=== PATIENT | male | born 1985 | race Caucasian/White ===

== ENCOUNTER 2022-06-02 14:41 | Emergency (ER) | payer OTHER ==
[2022-06-02 14:46] VITALS: BP 133/87; PULSE 75; RESP 18; TEMP 98.3
--- NOTE | 2022-06-02 15:24 | XR ---
EXAMINATION TYPE: XR forearm RT DATE OF EXAM: 06/02/2022 COMPARISON: NONE HISTORY: 37-year-old male right forearm crush injury, pain TECHNIQUE: 2 views FINDINGS: Some dressing is present along the distal aspect of the forearm. Some radial sided soft tissue injury is noted. No retained radiopaque foreign body is seen. No acute fracture, subluxation, or dislocatio n. Wrist and elbow articulations are grossly intact. No elbow joint effusion. IMPRESSION: Dressing over the distal forearm. Some radial sided soft tissue injury. No underlying acute osseous a bnormality seen.
[2022-06-02] MEDS ORDERED: DIPH,PERTUS(ACELL)TETVAC-LF 0.5 ML VIAL IM ONE (15:41)
[2022-06-02] MEDS ORDERED: LIDOCAINE 1% INJ 10MG/ML (5 ML VIAL-PF) SQ ONE (15:41)
--- NOTE | 2022-06-02 16:56 | ED ---
Wound/Laceration HPI - General Chief Complaint: Wound/Laceration Stated Complaint: [facility] - Rt arm lac Time Seen by Provider: 06/02/22 15:33 Source: patient Mode of arrival: EMS Limitations: no limitations - History of Present Illness Initial Comments: Patient is a 37-year-old male who presents for evaluation of laceration. Patient does arm caught in a press at work. Patient states it did not completely push down on his arm. Has laceration over right forearm. Patient reports minimal pain. Last tetanus unknown. - Related Data Previous Rx's Medication Instructions Recorded Cephalexin [Keflex] 500 mg PO Q6HR 5 Days #20 cap 06/02/22 Allergies Allergy/AdvReac Type Severity Reaction Status Date / Time No Known Allergies Allergy Verified 06/02/22 14:46 Review of Systems ROS Statement: Those systems with pertinent positive or pertinent negative responses have been documented in the HPI. ROS Other: All systems not noted in ROS Statement are negative. Past Medical History Past Medical History: No Reported History History of Any Multi-Drug Resistant Organisms: None Reported Past Surgical History: No Surgical Hx Reported Past Psychological History: No Psychological Hx Reported Smoking Status: Current every day smoker Past Alcohol Use History: None Reported Past Drug Use History: None Reported General Exam Limitations: no limitations General appearance: alert, in no apparent distress Head exam: Present: atraumatic, normocephalic, normal inspection Eye exam: Present: normal appearance, PERRL, EOMI. Absent: scleral icterus, conjunctival injection, periorbital swelling Respiratory exam: Present: normal lung sounds bilaterally. Absent: respiratory distress, wheezes, rales, rhonchi, stridor Cardiovascular Exam: Present: regular rate, normal rhythm, normal heart sounds. Absent: systolic murmur, diastolic murmur, rubs, gallop, clicks Extremities exam: Present: other (5 cm laceration over the right posterior forearm. Neurovascularly intact. Full range of motion of the right elbow, arm, hand, and digits.) Neurological exam: Present: alert, oriented X3, CN II-XII intact Psychiatric exam: Present: normal affect, normal mood Skin exam: Present: warm, dry, intact, normal color. Absent: rash Course Vital Signs 06/02/22 14:43 Temperature 98.3 F Pulse Rate 75 Respiratory 18 Rate Blood Pressure 133/87 O2 Sat by Pulse 100 Oximetry Procedures - Laceration Laceration #1 Consent Obtained: verbal consent Indication: laceration Site: upper extremity (right posterior forearm ) Description: linear Depth: simple, single layer Anesthetic Used: lidocaine 1% Anesthesia Technique: local infiltration Pre-repair: wound explored, irrigated extensively Type of Sutures: nylon Size of Sutures: 4-0 Number of Sutures: 9 Technique: simple, interrupted Patient Tolerated Procedure: well, no complications Medical Decision Making - Medical Decision Making This 37-year-old male who presents for evaluation of laceration. Thorough history and examination were performed. There is a laceration over the right posterior forearm approximately 5 cm long. Neurovascularly intact. Full range of motion of the right elbow, arm, hand, and digits. Patient reports minimal pain. Forearm x-ray was obtained which shows soft tissue injury with underlying acute osseous abnormality. The laceration was explored and irrigated extensively. It was well approximated with 9 sutures. Patient tolerated the procedure well without complication. Tetanus updated. Patient will be sent home on Keflex as prophylaxis. Wound care education provided in detail. Return parameters discussed. Patient verbalizes understanding and is agreeable to this plan. Dr. Richmond is my attending. Disposition Clinical Impression: Laceration Disposition: HOME SELF-CARE Condition: Good Instructions (If sedation given, give patient instructions): Care For Your Stitches (ED), Laceration (ED) Additional Instructions: Take antibiotic as directed. Leave wound uncovered. Keep wound clean and dry. Wash with a mild soap. Take Tylenol or anti-inflammatories such as Motrin for pain. Follow-up with primary care provider in 1-2 days. Return for suture removal in 10-12 days. Report back to the emergency department if you experience new, concerning, or worsening symptoms. Prescriptions: Cephalexin [Keflex] 500 mg PO Q6HR 5 Days #20 cap Is patient prescribed a controlled substance at d/c from ED?: No Referrals: None,Stated [Primary Care Provider] - 1-2 days Time of Disposition: 16:56
== END 2022-06-02 17:08 | disposition home or self-care (01) ==
LOC: EC 14:41
DX: S51.811A Laceration without foreign body of right forearm, initial encounter (principal); F17.200 Nicotine dependence, unspecified, uncomplicated; Z23 Encounter for immunization; X58.XXXA Exposure to other specified factors, initial encounter
CPT/HCPCS: 73090; 90715; 12002; 90471; 99283; J2001